=== PATIENT | female | born 1985 | race Caucasian/White ===

== ENCOUNTER 2018-09-18 07:19 | Day surgery (SDC) | payer OTHER ==
[2018-09-17 11:06] VITALS: BMI 42.3
--- NOTE | 2018-09-18 07:42 | HP ---
History & Physical Update - History History: No Change (H&P reviewed and found to be consistent with 08/24/18 H&P Consent signed and witnessed) - Physical Physical: No Change - Assessment Assessment: No Change - Plan Plan: No Change (history and physical consistent with H&P from)
[2018-09-18 08:21] LABS: HEMATOCRIT 39.4 % (32.4-45.2); HEMOGLOBIN 13.6 GM/dL (10.7-15.3); MCH 31.4 pg (25.7-33.7); MCHC 34.5 g/dl (32.0-36.0); MEAN CELL VOLUME 91.1 fl (80-96); MEAN PLT VOLUME 9.1 fl (7.5-11.1); PLATELET COUNT 265 K/MM3 (134-434); RBC 4.32 M/mm3 (3.60-5.2); RDW 13.5 % (11.6-15.6); WHITE BLOOD COUNT 7.6 K/mm3 (4.0-10.0)
[2018-09-18] MEDS ORDERED: MIDAZOLAM HCL 2 MG/2 ML SINGLE DOSE VIAL ONE (08:28)
[2018-09-18] MEDS ORDERED: KETOROLAC TROMETHAMINE 30 MG/1 ML VIAL ONE (08:29)
[2018-09-18] MEDS ORDERED: DEXAMETHASONE SOD PHOSPHATE 4 MG/1 ML VIAL ONE (08:29)
--- NOTE | 2018-09-18 08:54 | OP ---
Operative Note - Note: Operative Date: 09/18/18 Pre-Operative Diagnosis: 32yo P0 with abnormal bleeding with suspected submucosal fibroid Operation: Hysteroscopy, myomectomy, D&C Findings: 1. Submucosal fibroid 3cm Post-Operative Diagnosis: Same as Pre-op Surgeon: Arielle Bal Anesthesiologist/[facility] ATTENDANT: Dakota Lainez Anesthesia: MAC Specimens Removed: 1. Fibroid. 2. Endometrial curettings Estimated Blood Loss (mls): 5 Instrument used (Debridements only): Symphion Resectoscope Drains & Tubes with Location: Fluid defficit - 450cc Drains, Volume Out (mls): 10 Fluid Volume Replaced (mls): 300 Operative Report Dictated: Yes
[2018-09-18] MEDS ORDERED: IBUPROFEN 600 MG TABLET (FP) PO PRN (08:55)
[2018-09-18] MEDS ORDERED: oxyCODONE HCL 5 MG TABLET PO PRN (08:55)
[2018-09-18] MEDS ORDERED: ONDANSETRON 4 MG/2 ML VIAL IVPUSH PRN (08:55)
[2018-09-18] MEDS ORDERED: IBUPROFEN 800 MG/8 ML IJ IVPB PRN (08:55)
[2018-09-18] MEDS ORDERED: ELECTROLYTE-148 SOLN 1,000 ML IV SCH (09:00)
[2018-09-18] MEDS ORDERED: LACTATED RINGERS SOLUTION 1,000 ML IV SCH (09:30)
[2018-09-18 10:53] VITALS: BP 131/66; PULSE 85; TEMP 97.9
--- NOTE | 2018-09-18 16:28 | OP ---
DATE OF OPERATION: 09/18/2018 PREOPERATIVE DIAGNOSIS: A 32-year-old para 0 with abnormal bleeding, with suspected submucosal fibroid. OPERATION: Hysteroscopy, myomectomy, dilatation and curettage. FINDINGS: A 3-cm submucosal fibroid and overgrown endometrial lining. POSTOPERATIVE DIAGNOSIS: A 32-year-old para 0 with abnormal bleeding, with suspected submucosal fibroid. SURGEON: Arielle Bal MD ANESTHESIOLOGIST: Dakota Lainez REF-CRReanna ANESTHESIA: MAC. SPECIMEN REMOVED: 1. Fibroid. 2. Endometrial curettings. DESCRIPTION OF PROCEDURE: After assuring informed consent, the patient was brought to the operating room and placed in the dorsal lithotomy position. The perineum and vagina were prepped and draped in sterile fashion. Donovan retractors were placed into the vagina. The cervix anterior lip was articulated with a single-tooth tenaculum. The cervix was dilated with gradually increasing in size DeLee dilators to accommodate a 6.3-mm Symphion hysteroscope. The Symphion hysteroscope was assembled and primed. It subsequently was introduced into the uterine cavity. The above findings were noted, as well as bilateral ostia. The resectoscope device was introduced through the hysteroscope and activated. The entire fibroid was removed, as well as endometrial curettings were performed. The endometrial cavity was found to be empty as a result of the resection and fully intact. Shavings of the fibroid and endometrial curettings were sent to Pathology. Excellent hemostasis was noted. All instruments were removed from the cervix, uterus and vagina. Estimated blood loss was 2 mL. Fluid deficit was 450 mL. The patient drained 10 mL of urine and received 300 mL of IV fluids. Instrument and sponge count was correct x2. The patient was brought to the recovery room in stable condition. Jaz [id number] MTDD
--- NOTE | 2018-09-19 15:22 | PATH ---
Surgical Pathology Report Patient Name: BRIDGET GUY [facility]. Rec. #: [id number] /Age/Gender: 1985 (Age: 32) / F Account: [id number] Location: [facility] SURGICAL Taken: 09/18/2018 Received: 09/18/2018 Reported: 09/19/2018 Physicians: Arielle Bal M.D. Specimen(s) Received FIBROID Clinical History Menorrhagia, submucous leiomyoma of uterus Final Diagnosis FIBROID, HYSTEROSCOPIC MYOMECTOMY: BUNDLES OF SMOOTH MUSCLE CONSISTENT WITH SUBMUCOSAL LEIOMYOMA, PROLIFERATIVE ENDOMETRIUM, AND BENIGN ENDOCERVICAL TISSUE. Electronically Signed Cherelle Bartholomew M.D. Gross Description Received in formalin labeled "fibroid," is a 3.5 x 2.5 x 0.3 cm aggregate of weiner red soft tissue fragments. The formalin is filtered and the specimen is entirely submitted in 2 cassettes. /09/18/2018 saudi/09/18/2018
== END 2018-09-18 11:40 | disposition home or self-care (01) ==
LOC: JASU-SURG 07:19
PROVIDERS: ATTEND Obstetrics & Gynecology
PROC: 0UDB7ZX Extraction of Endometrium, Via Natural or Artificial Opening, Diagnostic (ICD-10-PCS; 2018-09-18)
PROC: 0UJD8ZZ Inspection of Uterus and Cervix, Via Natural or Artificial Opening Endoscopic (ICD-10-PCS; 2018-09-18)
PROC: 0UB98ZZ Excision of Uterus, Via Natural or Artificial Opening Endoscopic (ICD-10-PCS; principal; 2018-09-18 09:00)
DX: D25.0 Submucous leiomyoma of uterus (principal)
CPT/HCPCS: 36415; 84703; 85027; 86850; 86900; 86901; 88305-TC; 94760